=== PATIENT | female | born 1985 | race American Indian/Alaskan Native ===

== ENCOUNTER 2021-09-05 13:26 | Emergency (ER) | payer OTHER ==
[2021-09-05] MEDS ORDERED: MORPHINE 4 MG/1 ML INJ IV ONE (14:03)
[2021-09-05] MEDS ORDERED: SODIUM CHLORIDE 0.9% 1000 ML 1,000 ML IV ONE (14:03)
[2021-09-05] MEDS ORDERED: ONDANSETRON 4 MG/2 ML INJ IV ONE (14:03)
--- NOTE | 2021-09-05 14:10 | Emergency Department Report ---
ED Abdominal Pain HPI - General Chief Complaint: Abdominal Pain Stated Complaint: LOW ABD PAIN RT SIDE/SENT BY DR MCKEON Time Seen by Provider: 09/05/21 14:03 Source: patient Mode of arrival: Ambulatory Limitations: No Limitations - History of Present Illness Initial Comments: Patient son present, patient does speak some Arabic but son is present for interpretation with patient's permission Patient is a 36-year-old female presents emergency room complaints of lower abdominal pain that began 3 days ago. Patient sent by her primary care doctor and due to abdominal pain. She denies any nausea, vomiting, diarrhea. States that she had a normal bowel movement this morning. She denies any urinary symptoms. She has a past abdominal surgical history of x2. Patient denies any past medical history. No allergies to medications. She states that she is a non-smoker and nondrinker. [facility] 09/02/21 - Related Data Previous Rx's Medication Instructions Recorded Last Taken Type Ibuprofen [Motrin 600 MG tab] 600 mg PO Q8H #12 tablet 09/12/18 Unknown Rx Allergies Allergy/AdvReac Type Severity Reaction Status Date / Time No Known Allergies Allergy Unverified 09/12/18 17:42 ED Review of Systems ROS: Stated complaint: LOW ABD PAIN RT SIDE/SENT BY DR MCKEON Other details as noted in HPI Comment: All other systems reviewed and negative ED Past Medical Hx - Surgical History Additional Surgical History: x2 - Social History Smoking Status: Never Smoker Substance Use Type: None - Medications Home Medications: Home Medications Medication Instructions Recorded Confirmed Last Taken Type Ibuprofen [Motrin 600 MG tab] 600 mg PO Q8H #12 tablet 09/12/18 Unknown Rx ED Physical Exam - General Limitations: No Limitations General appearance: alert, in no apparent distress - Head Head exam: Present: atraumatic, normocephalic - Eye Eye exam: Present: normal appearance - ENT ENT exam: Present: mucous membranes moist - Respiratory Respiratory exam: Present: normal lung sounds bilaterally. Absent: respiratory distress, wheezes, rales, rhonchi, stridor, chest wall tenderness, accessory muscle use, decreased breath sounds, prolonged expiratory - Cardiovascular Cardiovascular Exam: Present: regular rate, normal rhythm, normal heart sounds. Absent: systolic murmur, diastolic murmur, rubs, gallop - GI/Abdominal GI/Abdominal exam: Present: soft, tenderness (mild generalized lower ), normal bowel sounds. Absent: distended, guarding, rebound, rigid - Neurological Exam Neurological exam: Present: alert, oriented X3 - Psychiatric Psychiatric exam: Present: normal affect, normal mood - Skin Skin exam: Present: warm, dry, intact ED Course Vital Signs 09/05/21 09/05/21 09/05/21 13:42 13:47 14:31 Temperature 98.4 F Pulse Rate 64 67 Respiratory 19 17 Rate Blood Pressure 133/86 138/78 O2 Sat by Pulse 100 100 Oximetry 09/05/21 14:35 Temperature 98.6 F Pulse Rate 64 Respiratory 18 Rate Blood Pressure 139/91 O2 Sat by Pulse 100 Oximetry ED Medical Decision Making - Lab Data Result diagrams: 09/05/21 14:26 09/05/21 14:26 Lab Results 09/05/21 09/05/21 09/05/21 Range/Units 14:26 14:26 14:26 WBC 3.4 L (4.5-11.0) K/mm3 RBC 4.42 (3.65-5.03) M/mm3 Hgb 11.0 (10.1-14.3) gm/dl Hct 33.4 (30.3-42.9) % MCV 76 L (79-97) fl MCH 25 L (28-32) pg MCHC 33 (30-34) % RDW 21.2 H (13.2-15.2) % Plt Count 282 (140-440) K/mm3 Lymph % (Auto) 41.8 H (13.4-35.0) % [place] % (Auto) 8.4 H (0.0-7.3) % Eos % (Auto) 0.8 (0.0-4.3) % Baso % (Auto) 0.4 (0.0-1.8) % Lymph # (Auto) 1.4 (1.2-5.4) K/mm3 [place]ay # (Auto) 0.3 (0.0-0.8) K/mm3 Eos # (Auto) 0.0 (0.0-0.4) K/mm3 Baso # (Auto) 0.0 (0.0-0.1) K/mm3 Seg Neutrophils % 48.6 (40.0-70.0) % Seg Neutrophils # 1.6 L (1.8-7.7) K/mm3 Sodium 139 (137-145) mmol/L Potassium 4.0 (3.6-5.0) mmol/L Chloride 104.4 (98-107) mmol/L Carbon Dioxide 23 (22-30) mmol/L Anion Gap 16 mmol/L BUN 7 (7-17) mg/dL Creatinine 0.5 L (0.6-1.2) mg/dL Estimated GFR > 60 ml/min BUN/Creatinine Ratio 14 % Glucose 96 (65-100) mg/dL Calcium 8.9 (8.4-10.2) mg/dL Total Bilirubin 0.70 (0.1-1.2) mg/dL AST 19 (5-40) units/L ALT 17 (7-56) units/L Alkaline Phosphatase 75 (35-129) units/L Total Protein 7.5 (6.3-8.2) g/dL Albumin 4.3 (3.9-5) g/dL Albumin/Globulin Ratio 1.3 % Lipase 28 (13-60) units/L HCG, Qual Negative (Negative) Urine Color (Yellow) Urine Turbidity (Clear) Urine pH (5.0-7.0) Ur Specific [place] (1.003-1.030) Urine Protein (Negative) mg/dL Urine Glucose (UA) (Negative) mg/dL Urine Ketones (Negative) mg/dL Urine Blood (Negative) Urine Nitrite (Negative) Urine Bilirubin (Negative) Urine Urobilinogen (<2.0) mg/dL Ur Leukocyte Esterase (Negative) Urine WBC (Auto) (0.0-6.0) /HPF Urine RBC (Auto) (0.0-6.0) /HPF U Epithel Cells (Auto) (0-13.0) /HPF Urine Mucus /HPF 09/05/21 Range/Units Unknown WBC (4.5-11.0) K/mm3 RBC (3.65-5.03) M/mm3 Hgb (10.1-14.3) gm/dl Hct (30.3-42.9) % MCV (79-97) fl MCH (28-32) pg MCHC (30-34) % RDW (13.2-15.2) % Plt Count (140-440) K/mm3 Lymph % (Auto) (13.4-35.0) % [place] % (Auto) (0.0-7.3) % Eos % (Auto) (0.0-4.3) % Baso % (Auto) (0.0-1.8) % Lymph # (Auto) (1.2-5.4) K/mm3 [place] # (Auto) (0.0-0.8) K/mm3 Eos # (Auto) (0.0-0.4) K/mm3 Baso # (Auto) (0.0-0.1) K/mm3 Seg Neutrophils % (40.0-70.0) % Seg Neutrophils # (1.8-7.7) K/mm3 Sodium (137-145) mmol/L Potassium (3.6-5.0) mmol/L Chloride (98-107) mmol/L Carbon Dioxide (22-30) mmol/L Anion Gap mmol/L BUN (7-17) mg/dL Creatinine (0.6-1.2) mg/dL Estimated GFR ml/min BUN/Creatinine Ratio % Glucose (65-100) mg/dL Calcium (8.4-10.2) mg/dL Total Bilirubin (0.1-1.2) mg/dL AST (5-40) units/L ALT (7-56) units/L Alkaline Phosphatase (35-129) units/L Total Protein (6.3-8.2) g/dL Albumin (3.9-5) g/dL Albumin/Globulin Ratio % Lipase (13-60) units/L HCG, Qual (Negative) Urine Color Straw (Yellow) Urine Turbidity Clear (Clear) Urine pH 5.0 (5.0-7.0) Ur Specific [place] 1.051 H (1.003-1.030) Urine Protein <15 mg/dl (Negative) mg/dL Urine Glucose (UA) Neg (Negative) mg/dL Urine Ketones Neg (Negative) mg/dL Urine Blood Lg (Negative) Urine Nitrite Neg (Negative) Urine Bilirubin Neg (Negative) Urine Urobilinogen < 2.0 (<2.0) mg/dL Ur Leukocyte Esterase Neg (Negative) Urine WBC (Auto) 1.0 (0.0-6.0) /HPF Urine RBC (Auto) 149.0 (0.0-6.0) /HPF U Epithel Cells (Auto) 4.0 (0-13.0) /HPF Urine Mucus Few /HPF - Radiology Data Radiology results: report reviewed Ordering Physician: DEDE PANDYA Date of Service: 09/05/21 Procedure(s): CT abdomen pelvis w con Accession Number(s): [id number] cc: DEDE PANDYA CT abdomen pelvis w con INDICATION / CLINICAL INFORMATION: lower abd pain. TECHNIQUE: Axial CT images were obtained through the abdomen and pelvis after 100 cc of Omnipaque [address] scans at this location are performed using CT dose reduction for ALARA by means of automated exposure control. COMPARISON: None available. FINDINGS: LOWER CHEST: Right perifissural nodule likely reflects intrapulmonary lymph node. No acute airspace disease in the lung bases. The heart is enlarged. LIVER: No significant abnormality GALLBLADDER/BILIARY TREE: No significant abnormality PANCREAS: No significant abnormality SPLEEN: No significant abnormality ADRENALS: No significant abnormality KIDNEYS / URETER: No significant abnormality URINARY BLADDER: Bladder is partially decompressed, though grossly unremarkable. REPRODUCTIVE ORGANS: There is a small uterine fibroid arising from the fundus. No suspicious adnexal mass. STOMACH / BOWEL: No significant abnormality. The appendix is normal in caliber. LYMPH NODES: No significant adenopathy. VASCULATURE: No significant abnormality. OTHER: No free air, free fluid, or focal fluid collection is identified. SKELETAL SYSTEM: No acute osseous findings. IMPRESSION: No acute abnormality of the abdomen or pelvis. No evidence of bowel obstruction or inflammation. Signer Name: Rima Diehl MD Signed: 09/05/2021 4:56 PM Workstation Name: [id number] Transcribed By: JS Dictated By: RIMA DIEHL MD Electronically Authenticated By: RIMA DIEHL MD Signed Date/Time: 09/05/211655 DD/ 53 TD/TT: Print - Medical Decision Making Patient son present, patient does speak some Arabic but son is present for interpretation with patient's permission Patient is a 36-year-old female presents emergency room complaints of lower abdominal pain that began 3 days ago. Patient sent by her primary care doctor and due to abdominal pain. She denies any nausea, vomiting, diarrhea. States that she had a normal bowel movement this morning. She denies any urinary symptoms. She has a past abdominal surgical history of x2. Patient denies any past medical history. No allergies to medications. She states that she is a non-smoker and nondrinker. [facility] 09/02/21. Vitals are normal. Patient has mild generalized abdominal tenderness on exam, no guarding, no rebound, no rigidity, normal bowel sounds, no peritoneal signs. Labs are stable. hCG is negative. UA without evidence of UTI. CT abdomen pelvis IV contrast: No acute abnormality of the abdomen or pelvis. No evidence of bowel obstruction or inflammation. Discussed all results with patient and answer questions. Discussed the importance of outpatient GI follow-up, discussed with the possibility of outpatient colonoscopy/endoscopy, patient son states that she already had that done and she is currently seeing a GI doctor regarding the symptoms. Advised patient follow up with a primary care doctor. follow up with a GI doctor. may take tylenol or ibuprofen as needed for pain. return to the emergency room for any new or worsening symptoms. Critical care attestation.: If time is entered above; I have spent that time in minutes in the direct care of this critically ill patient, excluding procedure time. ED Disposition Clinical Impression: Abdominal pain Qualifiers: Abdominal location: lower abdomen, unspecified Qualified Code(s): R10.30 - Lower abdominal pain, unspecified Disposition: HOME / SELF CARE / HOMELESS Is pt being admited?: No Does the pt Need Aspirin: No Condition: Stable Instructions: Abdominal Pain, Adult, [id number], Abdominal Pain (ED) Additional Instructions: follow up with a primary care doctor. follow up with a GI doctor. may take tylenol or ibuprofen as needed for pain. return to the emergency room for any new or worsening symptoms. Referrals: PRIMARY CAREMD [Primary Care Provider] - 2-3 Days [facility] [Provider Group] - 2-3 Days Time of Disposition: 18:06 Print Language: ITALIAN
[2021-09-05 14:40] VITALS: BP 139/91
[2021-09-05 14:57] LABS: Basophils % (Auto) 0.4 % (0.0-1.8); Eosinophils % (Auto) 0.8 % (0.0-4.3); Hematocrit 33.4 % (30.3-42.9); Lymphocytes # (Auto) 1.4 K/mm3 (1.2-5.4); Lymphocytes % (Auto) 41.8 % (13.4-35.0); Mean Corpuscular HGB Conc 33 % (30-34); Mean Corpuscular Volume 76 fl (79-97); Monocytes # (Auto) 0.3 K/mm3 (0.0-0.8); Monocytes % (Auto) 8.4 % (0.0-7.3); Platelet Count 282 K/mm3 (140-440); Red Blood Count 4.42 M/mm3 (3.65-5.03)
[2021-09-05 15:04] LABS: Alanine Aminotransferase 17 units/L (7-56); Albumin 4.3 g/dL (3.9-5); Blood Urea Nitrogen 7 mg/dL (7-17); Calcium 8.9 mg/dL (8.4-10.2); Hemolysis Index 4
[2021-09-05 15:06] LABS: BUN/Creatinine Ratio 14
[2021-09-05 15:38] LABS: Red Cell Distribution Width 21.2 % (13.2-15.2)
--- NOTE | 2021-09-05 17:01 | Cat Scan Report ---
CT abdomen pelvis w con INDICATION / CLINICAL INFORMATION: lower abd pain. TECHNIQUE: Axial CT images were obtained through the abdomen and pelvis after 100 cc of Omnipaque [address] scans at this location are performed using CT dose reduction for ALARA by means of automated exposure control. COMPARISON: None available. FINDINGS: LOWER CHEST: Right perifissural nodule likely reflects intrapulmonary lymph node. No acute airspace d isease in the lung bases. The heart is enlarged. LIVER: No significant abnormality GALLBLADDER/BILIARY TREE: No significant abnormality PANCREAS: No significant abnormality SPLEEN: No significant abnormality ADRENALS: No significant abnormality KIDNEYS / URETER: No significant abnormality URINARY BLADDER: Bladder is partially decompressed, though grossly unremarkable. REPRODUCTIVE ORGANS: There is a small uterine fibroid arising from the fundus. No suspicious adnexal mass. STOMACH / BOWEL: No significant abnormality. The appendix is normal in caliber. LYMPH NODES: No significant adenopathy. VASCULATURE: No significant abnormality. OTHER: No free air, free fluid, or focal fluid collection is identified. SKELETAL SYSTEM: No acute osseous findings. IMPRESSION: No acute abnormality of the abdomen or pelvis. No evidence of bowel obstruction or inflammation. Signer Name: Eric Wallace MD Signed: 09/05/2021 4:56 PM Workstation Name: [email or web address]
[2021-09-05 18:02] LABS: Bilirubin,Urine NEG (Negative); Blood,Urine LG (Negative); Color,Urine Straw (Yellow); Mucus,Urine FEW /HPF; Protein,Urine <15 mg/dL mg/dL (Negative); Urobilinogen,Urine < 2.0 mg/dL (<2.0)
== END 2021-09-05 18:40 | disposition home or self-care (01) ==
LOC: ED 13:26
DX: R10.30 Lower abdominal pain, unspecified (principal); Z98.890 Other specified postprocedural states; Z79.899 Other long term (current) drug therapy
CPT/HCPCS: 36415; 74177; 80053; 81001; 83690; 84703; 85025; 96361; 96374; 96375; 99284; J2270; J2405; J7030; Q9967

== ENCOUNTER 2021-09-19 07:21 | Day surgery (SDC) | payer OTHER ==
[2021-09-19] MEDS ORDERED: HYDROmorphone 1 MG/1 ML INJ IV PRN ×2 (08:00)
[2021-09-19 08:19] LABS: Hematocrit 32.6 % (30.3-42.9); Hemoglobin 10.4 gm/dl (10.1-14.3); Mean Corpuscular HGB Conc 32 % (30-34); Mean Corpuscular Volume 77 fl (79-97); Platelet Count 234 K/mm3 (140-440); Red Blood Count 4.26 M/mm3 (3.65-5.03)
[2021-09-19 08:24] LABS: Red Cell Distribution Width 21.4 % (13.2-15.2)
--- NOTE | 2021-09-19 08:29 | Anesthesia Day of Surgery ---
Anesthesia Day of Surgery - Day of Surgery Patient Examined: Yes Patient H&P Reviewed: Yes Patient is NPO: Yes (Had water this AM at 0640)
[2021-09-19] MEDS ORDERED: LACTATED RINGERS 1,000 ML IV SCH (08:30)
--- NOTE | 2021-09-19 08:30 | Anesthesia Consultation ---
Anesthesia Consult and Med Hx Date of service: 09/19/21 - Airway Anesthetic Teeth Evaluation: Good ROM Head & Neck: Adequate Mental/Hyoid Distance: Adequate Mallampati Class: Class IV Intubation Access Assessment: Possibly Difficult - Pre-Operative Health Status ASA Pre-Surgery Classification: ASA2 Proposed Anesthetic Plan: General - Pulmonary Hx Smoking: No - Central Nervous System Hx Psychiatric Problems: No - Hematic Hx Anemia: Yes Hx Sickle Cell Disease: No - Other Systems Hx Cancer: No Hx Obesity: Yes - Additional Comments Anesthesia Medical History Comments: Used language line to interpret Georgian- Creole
[2021-09-19] MEDS ORDERED: MIDAZOLAM 2 MG/2 ML INJ IV NR (09:00)
[2021-09-19] MEDS ORDERED: ONDANSETRON 4 MG/2 ML INJ IV PRN (09:00)
[2021-09-19] MEDS ORDERED: propofoL 200 MG/20 ML VIAL IV ONE (09:06)
[2021-09-19] MEDS ORDERED: HYDROmorphone 1 MG/1 ML INJ ONE (09:06)
[2021-09-19] MEDS ORDERED: BUPIVACAINE/PF (0.5%) 5 MG/1 ML 30 ML VIAL INFILTRATI ONE ×2 (09:35→10:17)
[2021-09-19] MEDS ORDERED: ONDANSETRON 4 MG/2 ML INJ ONE (09:57)
[2021-09-19] MEDS ORDERED: LIDOCAINE MPF (2%) 20 MG/1 ML VIAL 5 ML ONE (09:57)
[2021-09-19] MEDS ORDERED: dexAMETHasone 20 MG/5 ML VIAL ONE (09:57)
[2021-09-19] MEDS ORDERED: ROCURONIUM 50 MG/5 ML INJ IV ONE (09:57)
[2021-09-19] MEDS ORDERED: SODIUM CHLORIDE 0.9% IRR 1,500 ML BOTTLE IR ONE (10:17)
[2021-09-19] MEDS ORDERED: ceFAZolin/STERILE WATER 2 GM/20 ML SYRINGE IV NR (11:00)
[2021-09-19] MEDS ORDERED: GLYCOPYRROLATE 0.4 MG/2 ML INJ ONE (11:02)
[2021-09-19] MEDS ORDERED: KETOROLAC 30 MG/1 ML INJ ONE (11:02)
[2021-09-19] MEDS ORDERED: NEOSTIGMINE 10MG/10 ML INJ MDV ONE (11:02)
--- NOTE | 2021-09-19 11:25 | Operative Report ---
Operative Report Operative Report: Date of surgery: September 19, 2021 Admission diagnosis: Pelvic pain Postoperative diagnosis: The same, filmy peritoneal adhesions involving the omentum and the uterus to the anterior Parietal peritoneum. Procedure: Diagnostic laparoscopic. Lysis of adhesions Surgeon: Nella Gann MD Anesthesia: General anesthesia Anesthesiologist: Eliot LAWSON Estimated blood loss: Less than 5 cc Complications: None Findings: The uterus, fallopian tubes and ovaries were all grossly normal. The bowels, omentum, inferior dome of the diaphragm, the liver were all grossly normal. Significant adhesions involving the greater omentum and the midportion of the anterior surface of the uterus to the anterior parietal peritoneum we noted. Pictures were taken. The greater omentum was laden with fat and made it difficult visualizing the underlying viscera. Vaginally, the cervix was noted to be fixed anteriorly under the symphysis pubis and with a very shortened to nonexistent anterior lip. Patient was taken to the operating room and in the straight supine position she was given general anesthesia. Patient was then put in the lithotomy position and prepped in the vulvar vagina and abdomen. The drapes were placed. A timeout was done. With the go ahead from the java web user interface developer, an indwelling Marroquin catheter was inserted. A sponge forceps was attached to the posterior lip of the cervix and was used to anchor the acorn cannula. At the navel a small stab incision was made in the sub-umbilical aspect. The Veress needle was carefully inserted into the peritoneal cavity, making sure to point the tip of this instruments towards the free hollow of the pelvis. The Veress needle was thereafter aspirated and no blood was drawn. Veress needle was then flushed through with a small quantity of sterile normal saline without any resistance. About 3 and half liters of carbon dioxide was used to insufflate the peritoneal cavity. After removing the Veress needle, a 5 mm trocar with its port was inserted into the peritoneal cavity and again making sure to point the tip of this instrument into the free hollow of the pelvis. The laparoscope was subsequently confirmed successful access to the peritoneal cavity. 1 additional 5 mm port was placed in the left flank. The LigaSure was used to thermally coagulate the adhesions as close as possible to the anterior parietal peritoneum before dividing all of them. There was no bleeding intraperitoneally. Hemostasis was very good. Careful inspection of th e peritoneal cavity was once again done. The pneumoperitoneum was then expelled and all instruments were removed from the abdomen.Oozing from the stab incisions was controlled with the Bovie before each incision was sealed with a single stitch of 2-0 Vicryl and Dermabond. The patient tolerated the procedure well. There were no complications. Blood loss was estimated at less than 5 cc. All sponges and instruments were accounted for. The patient was transferred in satisfactory condition to the recovery room.
[2021-09-19] MEDS ORDERED: HYDROcodone/ACETAMINOPHEN 5-325 MG TAB ONE (12:04)
[2021-09-19] MEDS ORDERED: HYDROcodone/ACETAMINOPHEN 5-325 MG TAB PO PRN (12:05)
--- NOTE | 2021-09-19 12:38 | Post Anesthesia Evaluation ---
- Post Anesthesia Evaluation Patient Participated: Yes Airway Patent: Yes Stable Respiratory Function: Yes Nausea/Vomiting: No Temp > 96.8F: Yes Pain Manageable: Yes Adequeate Hydration: Yes Anesthesia Complications: No Block Receding Appropriately: Not Applicable Patient on Ventilator: No
[2021-09-19 16:36] VITALS: BP 132/74
== END 2021-09-19 07:22 | disposition home or self-care (01) ==
LOC: OR 07:21
PROVIDERS: ATTEND Obstetrics & Gynecology
DX: R10.2 Pelvic and perineal pain (principal); K66.0 Peritoneal adhesions (postprocedural) (postinfection); E66.9 Obesity, unspecified; Z79.899 Other long term (current) drug therapy; Z98.890 Other specified postprocedural states
CPT/HCPCS: 36415; 58660; 81025; 85027; J1100; J1170; J1885; J2250; J2405; J2704; J2710; J7120